=== PATIENT | female | born 1980 | race Caucasian/White ===

== ENCOUNTER → 2022-10-19 | Outpatient (CLI) | payer OTHER ==
[2022-10-21 07:06] LABS: QUANTIFERON, TB GOLD PLUS Negative (Negative)
== END | disposition home or self-care (01) ==
LOC: LABMN 13:17
PROVIDERS: ATTEND Internal Medicine Cardiovascular Disease
DX: Z02.1 Encounter for pre-employment examination (principal)
CPT/HCPCS: 86480